=== PATIENT | male | born 1970 | race Caucasian/White ===

== ENCOUNTER 2020-07-30 19:23 | Emergency (ER) | payer MEDICARE ==
[~2020-07-30] VITALS: Ht 175.3 cm; Wt 81.6 kg
[2020-07-30 19:25] VITALS: BP 151/77
[2020-07-30] MEDS ORDERED: ACETAMINOPHEN ES 500 MG TABLET PO ONE (20:00)
[2020-07-30] MEDS ORDERED: ACETAMINOPHEN ES 500 MG TABLET ONE (20:21)
--- NOTE | 2020-07-30 20:36 | NUR ---
Patient given written and verbal discharge instructions. Patient verbalizes understanding of instructions. Patient is ambulatory with steady gait. Refuses offer of [facility] placement. Patient given list of available shelters in surrounding area.
== END 2020-07-30 20:37 | disposition home or self-care (01) ==
LOC: ER 19:23
DX: I11.0 Hypertensive heart disease with heart failure (principal); I50.9 Heart failure, unspecified